=== PATIENT | male | born 1940 | race Caucasian/White ===

== ENCOUNTER 2022-10-20 18:51 | Inpatient (IN) | payer MEDICARE, SELFPAY ==
--- NOTE | ~2022-10-20 | XR_ITS ---
EXAMINATION: XR chest 2V DATE: 10/20/2022 19:30 INDICATION: Dyspnea TECHNIQUE: PA and lateral views of the chest were obtained. COMPARISON: None FINDINGS: Blunting at the bilateral posterior sulci and costophrenic angles consistent with small bilateral ple ural effusions with associated basilar atelectasis. No other airspace opacities, pulmonary edema or p neumothorax. Heart size is normal. Mild to moderate thoracic spondylosis. IMPRESSION: 1. Small bilateral pleural effusions with associated mild bibasilar atelectasis. Reviewed, dictated and finalized at location A. IMPRESSION: 1. Small bilateral pleural effusions with associated mild bibasilar atelectasis .
--- NOTE | ~2022-10-20 | NM_ITS ---
EXAMINATION: NM anup stress w perfusion DATE: 10/23/2022 09:40 INDICATION: Abnormal electrocardiogram. Elevated troponin. TECHNIQUE: Rest images were obtained following intravenous administration of 11.0 mCi Tc99m tetrofosm in (Myoview). The patient was infused intravenously with Lexiscan (regadenoson). Then, 34.6 mCi Tc99m tetrofosmin (Myoview) was administered intravenously, and stress images were obtained. Data was genet nstructed into short axis and horizontal and vertical long axis SPECT images. Gated SPECT images were also obtained. COMPARISON: CT abdomen and pelvis 08/26/2016 FINDINGS: Increased activity below the diaphragm decreases sensitivity and specificity in the inferio r wall. There is a large, severe, partially reversible perfusion defect involving left ventricular ap ex, inferior wall, apical septal segment, mid inferoseptal segment, and basal inferolateral segment, consistent with mixed infarct and ischemia. There is global hypokinesis. Left ventricular ejection fraction measures 39%. IMPRESSION: 1. 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 2. Global hypokinesis with left ventricular ejection fraction measuring 39%. Reviewed, dictated and finalized at location A. IMPRESSION: 1. Large area of severe mixed infarct and ischemia involving left ventricular a pex, inferior wall, apical septal segment, mid inferoseptal segment, and basal inferolateral segment. 2. Global hypokinesis with left ventricular ejection fraction measuring 39%.
[2022-10-20 18:52] VITALS: BP 111/66; PULSE 96; RESP 16; TEMP 36.7; O2SAT 100
--- NOTE | 2022-10-20 18:55 | ECG_ITS ---
Measurements Intervals [place] Rate: 95 P: 39 IA: 190 QRS: -11 QRSD: 106 T: 25 QT: 362 QTc: 456 Interpretive Statements SINUS RHYTHM VENTRICULAR PREMATURE COMPLEX INFERIOR INFARCT, AGE INDETERMINATE BORDERLINE ST-T WAVE ABNORMALITY- ANTEROLAT/HIGH LAT LEADS BASELINE ARTIFACT- I, II, AVR ABNORMAL ECG NO PREVIOUS ECG AVAILABLE FOR COMPARISON Electronically Signed On 10-20-2022 20:30:40 CDT by Srinivas Lott D.O.
[2022-10-20 19:18] LABS: Basophils Absolute Auto 0.1 K/mm3 (0.0-0.1); Basophils Percent Auto 1.6 % (0.2-1.2); Eosinophils Percent Auto 0.6 % (0-4.4); Hematocrit 28.9 % (42.0-52.0); Hemoglobin 8.3 g/dL (14.0-18.0); Immature Granulocyte Absolute 0.02 K/mm3 (0.00-0.031); Immature Granulocyte Percent A 0.3 % (0-0.5); Lymphocytes Absolute Auto 1.22 K/mm3 (0.9-3.2); Lymphocytes Percent Auto 17.5 % (18.3-44.2); Mean Corpuscular HGB Conc 28.7 g/dl (32-36); Mean Corpuscular Hemoglobin 21.5 pg (26-34); Mean Corpuscular Volume 74.9 fl (80-100); Mean Platelet Volume 10.5 fl (7.4-10.4); Monocytes Absolute Auto 0.7 K/mm3 (0.1-0.6); Monocytes Percent Auto 9.3 % (2.6-8.5); Neutrophils Percent Auto 70.7 % (45.5-73.1); Platelet Count Result 309 k/mm3 (150-375); Red Blood Count 3.86 M/mm3 (4.6-6.20); Red Cell Distribution Width 18.4 % (11.5-14.5)
[2022-10-20 19:31] LABS: Alanine Aminotransferase 26 U/L (6-50); Albumin Level 4.5 g/dL (3.5-5.1); Alkaline Phosphatase 42 U/L (38-126); Anion Gap 10 mmol/L (8-16); Aspartate Amino Transferase 50 U/L (17-59); Blood Urea Nitrogen 25 mg/dL (9-20); Calcium 9.9 mg/dL (8.4-10.2); Carbon Dioxide 27 mmol/L (22-30); Chloride 104 mmol/L (98-107); Estimated CRCL calculation 50 ml/min; Estimated Glomerular Filt Rate > 60; Glucose 124 mg/dL (65-110); Potassium 3.6 mmol/L (3.4-5.0); Sodium 141 mmol/L (137-145)
[2022-10-20 19:33] LABS: INR 1.1
[2022-10-20 19:34] LABS: Partial Thromboplastin Time 34.6 SECONDS (22.3-36.8)
[2022-10-20 19:49] LABS: Platelet Estimate Adequate (Adequate)
[2022-10-20 19:50] LABS: Anisocytosis 3+ (NORMAL); Hypochromasia 1+ (NORMAL)
[2022-10-20 19:51] LABS: NT Pro B Type Natriuretic Pept 8110 pg/mL (19.9-100); Troponin I 0.218 ng/mL (0.000-0.034)
[2022-10-20 20:14] LABS: Schistocytes None Seen (NORMAL)
[2022-10-20 20:28] VITALS: BP 110/69; PULSE 96; RESP 23; O2SAT 99
[2022-10-20] MEDS: FUROSEMIDE INJ 40 MG/4 ML VIAL IV PUSH (20:32)
[2022-10-20 20:41] VITALS: O2SAT 94
--- NOTE | 2022-10-20 20:46 | ED.SOB ---
HPI - SOB/Dyspnea General Chief Complaint: Shortness of Breath/Dyspnea Stated Complaint: dyspnea/ extremity swelling Time Seen by Provider: 10/20/22 20:00 History of Present Illness HPI Narrative: Patient is an 82-year-old male who presents ER with shortness of breath. Reports over the last week he has developed lower extremity swelling as well as orthopnea. No productive cough. No chest pain or chest pressure. He does have shortness of breath with exertion. No history of heart failure or [place] but he has seen a heart doctor in the past for an irregular rhythm. Related Data Allergies Allergy/AdvReac Type Severity Reaction Status Date / Time sulfamethoxazole Allergy Severe HIVES/ITCHI Verified 10/20/22 20:30 NG/FLUSHING trimethoprim Allergy Severe HIVES/ITCHI Verified 10/20/22 20:30 NG/FLUSHING Review of Systems Review of Systems: All systems reviewed & are unremarkable except as noted in HPI and below Constitutional: Constitutional: Denies chills, Reports fatigue and Denies fever(s) ENT: Denies nasal congestion and Denies sore throat Cardiovascular: Cardiovascular: Denies chest pain, Denies rapid heart rate and Denies radiating jaw, neck or arm pain Respiratory: Respiratory: Denies cough, Reports dyspnea and Denies wheezing Comments: Positive orthopnea Gastrointestinal: Gastrointestinal: Denies abdominal pain, Denies nausea and Denies vomiting PMFSH Past Medical History Medical History (Updated 10/20/22 @ 21:33 by Armen Damon MD) Gout Hyperlipidemia Hypertension Surgical History Surgical History (Updated 10/20/22 @ 21:31 by Armen Damon MD) Hx of total knee arthroplasty Bilateral Exam Narrative: GENERAL: Well-appearing, well-nourished, and in no acute distress. HEAD: Normocephalic, atraumatic. ENT: Mucous membranes moist. NECK: Supple. CHEST: Clear to auscultation. No respiratory distress. HEART: Regular rate and rhythm. High-pitched murmur at the left lower sternal border and over the apex. Normal peripheral pulses. ABDOMEN: Soft, nontender, nondistended. EXTREMITIES: Normal range of motion. +2 edema. SKIN: Warm, dry, no rash. NEURO: Alert and oriented x3. PSYCH: Normal mood and affect. Course Course Emergency Course: Patient will be admitted to the hospital service. He will be diuresed. Lovenox given for elevated troponin. Troponins will be trended. Patient aware of diagnosis and treatment plan as well as exam and lab/imaging findings. Vital Signs Vital signs: Vital Signs Temperature 98.1 F 10/20/22 18:52 Pulse Rate 96 10/20/22 18:52 Respiratory Rate 16 10/20/22 18:52 Blood Pressure 111/66 10/20/22 18:52 Pulse Oximetry 100 10/20/22 18:52 Temperature 98.1 F 10/20/22 18:52 Pulse Rate 96 10/20/22 20:28 Respiratory Rate 23 H 10/20/22 20:28 Blood Pressure 110/69 10/20/22 20:28 Pulse Oximetry 94 10/20/22 20:41 Oxygen Delivery Room Air 10/20/22 20:41 MDM - SOB/Dyspnea Lab Data 10/20/22 19:04 10/20/22 19:04 Labs: Lab Results 10/20/22 Range/Units 19:04 WBC 7.0 (4.5-10.0) K/mm3 RBC 3.86 L (4.6-6.20) M/mm3 Hgb 8.3 L (14.0-18.0) g/dL Hct 28.9 L (42.0-52.0) % MCV 74.9 L (80-100) fl MCH 21.5 L (26-34) pg MCHC 28.7 L (32-36) g/dl RDW 18.4 H (11.5-14.5) % Plt Count 309 (150-375) k/mm3 MPV 10.5 H (7.4-10.4) fl Immature Gran % (Auto) 0.3 (0-0.5) % Neut % (Auto) 70.7 (45.5-73.1) % Lymph % (Auto) 17.5 L (18.3-44.2) % Oliver % (Auto) 9.3 H (2.6-8.5) % Eos % (Auto) 0.6 (0-4.4) % Baso % (Auto) 1.6 H (0.2-1.2) % Lymph # (Auto) 1.22 (0.9-3.2) K/mm3 Oliver # (Auto) 0.7 H (0.1-0.6) K/mm3 Eos # (Auto) 0.0 (0-0.3) K/mm3 Baso # (Auto) 0.1 (0.0-0.1) K/mm3 Abs Immat Gran (auto) 0.02 (0.00-0.031) K/mm3 Absolute Neuts (auto) 5.0 (1.3-6.7) K/mm3 Absolute Nucleated RBC 0.0 (0.0-0.012) K/mm3 Nucleated RBC % 0.0 (0.0-0.2) % Pl
[2022-10-20] MEDS: ENOXAPARIN 100 MG/ML SYRINGE 89 MG SUB-Q (21:35)
[2022-10-20 21:45] VITALS: BP 121/76; PULSE 89; RESP 20; O2SAT 95
[2022-10-20 22:05] VITALS: BP 123/79; PULSE 104; RESP 20; TEMP 36.3; O2SAT 99; BMI 27.1
--- NOTE | 2022-10-20 22:11 | ADMGEN ---
This patient, Carlos Aparicio, was admitted to IMU Room 200-01 at 2205. Patient/family oriented to hospital policies and general routines including ID bracelet, bed and alarms, visiting hours, pain management, procedures, bathroom and other care routines, personal items, smoking policy, room service/diet, and visiting hours. Information on how to activate the Rapid Response Team has been discussed. Patient/Family are encouraged to report perceived risks to care and to ask questions if they do not understand what they are told or what they should do.
[2022-10-20 22:33] VITALS: BMI 26.7
[2022-10-21] VITALS (15 sets, daily range): BP systolic 94–122; BP diastolic 62–75; PULSE 77–95; RESP 16–18; TEMP 36.3–36.9; O2SAT 92–100
[2022-10-21 00:54] LABS: Troponin I 0.251 ng/mL (0.000-0.034)
--- NOTE | 2022-10-21 04:36 | PC.NURSE ---
Order not to call with results of [address] Murguia.
--- NOTE | 2022-10-21 06:00 | ECHO_ITS ---
Patient Info Name: Carlos Aparicio Age: 82 years : 1940 Gender: Male Ht: 72 in Wt: 197 lbs BSA: 2.14 m2 HR: 83 bpm BP: 121 / 54 mmHg Heart Rhythm: Sinus Rhythm Technical Quality: Fair Exam Date: 10/21/2022 7:45 AM Exam Location: [facility] Patient Status: Outpatient Admit Date: 10/20/2022 Staff Ordering Physician: Armen Damon MD Target Trimmer: Deedee Reyes RDCS Attending Provider: Candida Murguia DO Referring Physician: Nelson SIMS; Exam Type: CA echo doppler color flow Study Info Indications - chf Complete two-dimensional, color flow and Doppler transthoracic echocardiogram is performed. Summary 1. Complete two-dimensional, color flow and Doppler transthoracic echocardiogram is performed. 2. Left ventricular chamber dimension is moderately enlarged. 3. Left ventricular systolic function is low normal, estimated at 50-55%. 4. There is mildly increased left ventricular wall thickness. 5. The left ventricular diastolic function is grade II diastolic dysfunction. 6. The anterior wall, apical inferior wall, apical cap, and mid inferior wall are hypokinetic. 7. Left atrial chamber dimension is moderately enlarged. 8. There is moderate to severe aortic valve stenosis with a peak velocity of 229 cm/s, mean gradient of 12 mmHg, and aortic valve area of 1.0 cm2. 9. There is moderate mitral valve regurgitation. 10. The mitral valve has thickened leaflets. 11. There is mild tricuspid valve regurgitation. Left Ventricle Left ventricular chamber dimension is moderately enlarged. Left ventricular systolic function is low normal, estimated at 50-55%. There is mildly increased left ventricular wall thickness. The left ventricular diastolic function is grade II diastolic dysfunction. The basal inferior wall, basal inferolateral wall, and mid inferolateral wall are akinetic. The anterior wall, apical inferior wall, apical cap, and mid inferior wall are hypokinetic. All other buckley appear normal. Right Ventricle Right ventricular chamber dimension is normal. Right ventricular systolic function is normal. Left Atria Left atrial chamber dimension is moderately enlarged. Right Atria Right atrial chamber dimension is normal. Atrial Septum Intact interatrial septum visualized by color flow imaging. Aortic Valve The aortic valve is probable trileaflet. There is moderate to severe aortic valve stenosis with a peak velocity of 229 cm/s, mean gradient of 12 mmHg, and aortic valve area of 1.0 cm2. There is trace aortic valve regurgitation. Pulmonic Valve The pulmonic valve is normal. There is no pulmonic valve stenosis. There is trace pulmonic regurgitation. Mitral Valve The mitral valve has thickened leaflets. There is no mitral valve stenosis. There is moderate mitral valve regurgitation. Tricuspid Valve The tricuspid valve leaflets are normal. There is no significant tricuspid valve stenosis. There is mild tricuspid valve regurgitation. No pulmonary hypertension, estimated pulmonary arterial systolic pressure is 24 mmHg. Pericardium/Pleural The pericardium appears normal. There is no pericardial effusion. Inferior Vena Cava Normal inferior vena cava with >50% collapse upon inspiration consistent with elevated right atrial pressure, 10 mmHg. Aorta The aortic root size at the sinus of Valsalva is normal. The prox ascending aorta size is normal. Left Ventricular Outflow Tract Name Value Normal ---------
[2022-10-21] MEDS: FUROSEMIDE INJ 40 MG/4 ML VIAL IV PUSH ×2 (08:18→19:52)
[2022-10-21 10:00] LABS: Hematocrit 28.2 % (42.0-52.0); Hemoglobin 7.8 g/dL (14.0-18.0); Mean Corpuscular HGB Conc 27.7 g/dl (32-36); Mean Corpuscular Hemoglobin 21.1 pg (26-34); Mean Corpuscular Volume 76.4 fl (80-100); Mean Platelet Volume 11.1 fl (7.4-10.4); Platelet Count Result 303 k/mm3 (150-375); Red Blood Count 3.69 M/mm3 (4.6-6.20); Red Cell Distribution Width 18.3 % (11.5-14.5); White Blood Count 7.1 K/mm3 (4.5-10.0)
[2022-10-21 10:09] LABS: Anion Gap 11 mmol/L (8-16); Blood Urea Nitrogen 25 mg/dL (9-20); Calcium 9.4 mg/dL (8.4-10.2); Carbon Dioxide 27 mmol/L (22-30); Chloride 102 mmol/L (98-107); Estimated CRCL calculation 51 ml/min; Estimated Glomerular Filt Rate > 60; Glucose 92 mg/dL (65-110); Magnesium 2.1 mg/dL (1.6-2.3); Potassium 3.4 mmol/L (3.4-5.0); Sodium 140 mmol/L (137-145)
[2022-10-21] MEDS: ATORVASTATIN 20 MG TABLET PO (11:23)
[2022-10-21] MEDS: HYDROcodone/acetaminophen (*CRX) 5-325 MG TABLET 1 TAB PO ×2 (11:27→19:52)
--- NOTE | 2022-10-21 13:00 | PC.NURSE ---
Vtach noted on ekg, 10 beats at 1116 at 5 beats at 1216. Orders obtained for stat mag and bmp, ekg obtained for rhythm changes. Dr. Hubbard notified of all values. Cardiology consulted, and will see patient as well. Patient stated she felt short of breath, and was placed on 2 L nasal cannula. Will continue to monitor closely.
--- NOTE | 2022-10-21 13:21 | PM.CNCAR ---
Assessment and Plan Assessment and plan (1) Congestive heart failure: Code(s): I50.9 - Heart failure, unspecified Status: Acute Assessment and Plan: Continue with intermittent IV Lasix. Please monitor strict I/Os. Echo pending. Will also check TSH level. (2) Elevated troponin: Code(s): R77.8 - Other specified abnormalities of plasma proteins Status: Acute Assessment and Plan: Troponin 0.218 --> 0.251 --> 0.290. EKG without ischemic changes. No chest pain. Likely due to acute heart failure. Echo pending. History of Present Illness History of Present Illness Consult date/time: 10/21/22 13:21 Requesting physician: Armen Damon MD Consult reason: congestive heart failure Reason For Visit: CHF Exacerbation, elevated troponin, heart murmer Narrative: We are consulted for heart failure. This is an 82-year-old male with a history of hypertension and hyperlipidemia who presented with shortness of breath. Began last . Was concerned it may have been COVID, so he went to an urgent care on Thursday, and got tested for COVID, which came back negative. Shortness of breath occurs with minimal exertion. No chest pain. Also has bilateral lower extremity edema. No prior cardiac history. Reports he had skipping of his heart beat in the past and had a stress test several years ago that was normal. Former smoker - quit in 1970. Used to smoke 1PPD for 14 years. Remote history of alcohol drinking. ER evaluation showed troponin 0.218 --> 0.251 --> 0.290. BNP elevated at 8,110. CXR with small bilateral pleural effusions. EKG with sinus rhythm, probable old inferior infarct, PVC. We do not have a prior EKG for comparison. Patient started on IV Lasix and states he feels better since diuresis. Review of Systems Review of Systems: All systems reviewed & are unremarkable except as noted in HPI and below (HPI) [facility] Past Medical History Medical History Gout Hyperlipidemia Hypertension Surgical History Surgical History Hx of total knee arthroplasty Bilateral Family History Family History Daughter Congestive heart failure Social History Social History Smoking packs per day: 1 Smoking cigarettes per day: 20.0 Years smoked: 12 Smoking pack-years: 12.00 Smoking status: Former smoker Tobacco type: cigarettes Smokeless tobacco user: chewing tobacco Second hand tobacco smoke exposure: No Smoking end date: 06/08/70 Alcohol intake: former Substance use: never Lack of Transportation: No Lack of Food: Never True Current Housing: I Have Housing Concerned About Future Housing: No Difficulty Paying Gas/Electric Bills: No Difficulty Paying for Meds: No Currently Unemployed: No Education: High School Diploma/GED Difficulty w/ Childcare or Family Care: No Spiritual care concerns: No Meds Home Medications and Allergies Home Medications Medication Instructions Recorded Confirmed Type allopurinol 100 mg tablet 100 mg PO BID 10/20/22 10/20/22 History atorvastatin 20 mg tablet 20 mg PO DAILY 10/20/22 10/20/22 History calcium carbonate 500 2 tablet PO PRN PRN Indigestion 10/20/22 10/20/22 History mg-simethicone 20 mg chewable tablet levothyroxine 150 mcg tablet 150 mcg PO DAILY 10/20/22 10/20/22 History Allergies Allergy/AdvReac Type Severity Reaction Status Date / Time sulfamethoxazole Allergy Severe HIVES/ITCHI Verified 10/20/22 20:30 NG/FLUSHING trimethoprim Allergy Severe HIVES/ITCHI Verified 10/20/22 20:30 NG/FLUSHING Vital Signs Vital Signs - 24 hr 10/20/22 18:52 10/20/22 20:28 10/20/22 20:41 Temperature 36.7 C Pulse Rate 96 96 Respiratory Rate 16 23 H Blood Pressure 111/66 110/69 Pulse Oximetry 100 99 9
[2022-10-21] MEDS: NEOMYCIN/POLYMYXIN/BACITRACIN OINTMENT 15 GM TUBE 1 APPLIC TOPICAL (14:00)
--- NOTE | 2022-10-21 16:04 | PM.IMHP ---
H&P: HPI History of Present Illness Date/Time: 10/21/22 16:04 Chief Complaint: Shortness of breath Narrative: ED-HPI Narrative: Patient is an 82-year-old male who presents ER with shortness of breath.? Reports over the last week he has developed lower extremity swelling as well as orthopnea.? No productive cough.? No chest pain or chest pressure.? He does have shortness of breath with exertion.? No history of heart failure or [place] but he has seen a heart doctor in the past for an irregular rhythm. 82-year-old male presented with shortness of breathe lower extremity edema suspect patient may have congestive heart failure patient is being diuresed, etiology is uncertain patient states since start of Lasix his symptoms have improved is able to lie down and able to breathe, patient denies any chest pain shortness of breath or dizziness. Patient admitted as observation status Review of Systems Review of Systems: All systems reviewed & are unremarkable except as noted in HPI and below (HPI) Cardiovascular: Cardiovascular: Denies chest pain Respiratory: Respiratory: Denies cough and Denies dyspnea on exertion Hematologic/Lymphatic: Hematologic/Lymphatic: Denies easy bleeding PMFSH Past Medical History Medical History (Updated 10/22/22 @ 09:39 by Ant Shabazz MD) Aortic stenosis Gout Hyperlipidemia Hypertension Surgical History Surgical History Hx of total knee arthroplasty Bilateral Family History Family History Daughter Congestive heart failure Social History Social History Smoking packs per day: 1 Smoking cigarettes per day: 20.0 Years smoked: 12 Smoking pack-years: 12.00 Smoking status: Former smoker Tobacco type: cigarettes Smokeless tobacco user: chewing tobacco Second hand tobacco smoke exposure: No Smoking end date: 06/08/70 Alcohol intake: former Substance use: never Lack of Transportation: No Lack of Food: Never True Current Housing: I Have Housing Concerned About Future Housing: No Difficulty Paying Gas/Electric Bills: No Difficulty Paying for Meds: No Currently Unemployed: No Education: High School Diploma/GED Difficulty w/ Childcare or Family Care: No Spiritual care concerns: No Meds Home Medications and Allergies Home Medications Medication Instructions Recorded Confirmed Type allopurinol 100 mg tablet 100 mg PO BID 10/20/22 10/20/22 History atorvastatin 20 mg tablet 20 mg PO DAILY 10/20/22 10/20/22 History calcium carbonate 500 2 tablet PO PRN PRN Indigestion 10/20/22 10/20/22 History mg-simethicone 20 mg chewable tablet levothyroxine 150 mcg tablet 150 mcg PO DAILY 10/20/22 10/20/22 History Allergies Allergy/AdvReac Type Severity Reaction Status Date / Time sulfamethoxazole Allergy Severe HIVES/ITCHI Verified 10/20/22 20:30 NG/FLUSHING trimethoprim Allergy Severe HIVES/ITCHI Verified 10/20/22 20:30 NG/FLUSHING Vital Signs Vital Signs - 24 hr 10/20/22 18:52 10/20/22 20:28 10/20/22 20:41 Temperature 98.1 F Pulse Rate 96 96 Respiratory Rate 16 23 H Blood Pressure 111/66 110/69 Pulse Oximetry 100 99 94 Oxygen Delivery Room Air 10/20/22 21:45 10/20/22 22:05 10/21/22 00:00 Temperature 97.3 F L Pulse Rate 89 104 H 95 Respiratory Rate 20 20 Blood Pressure 121/76 123/79 Pulse Oximetry 95 99 Oxygen Delivery 10/21/22 04:00 10/21/22 00:00 10/21/22 04:00 Temperature 97.3 F L Pulse Rate 82 Respiratory Rate 18 Blood Pressure 98/72 L Pulse Oximetry 94 Oxygen Delivery Room Air Room Air 10/21/22 00:00 10/21/22 02:00 10/21/22 04:00 Temperature Pulse Rate 87 87 80 Respiratory Rate Blood Pressure Pulse Oximetry Oxygen Delivery 10/21/22 06:00 10/21/22 08:00 10/21/22 08:00 Temperature 97.3 F L Pu
[2022-10-21] MEDS: allopurinoL 100 MG TABLET PO (18:18)
[2022-10-21 19:25] LABS: Free T4 Free Thyroxine 0.61 ng/mL (0.78-2.19)
[2022-10-22] VITALS (14 sets, daily range): BP systolic 102–138; BP diastolic 56–67; PULSE 66–107; RESP 16–20; TEMP 36.1–36.5; O2SAT 95–100
[2022-10-22] MEDS: LEVOTHYROXINE SODIUM 150 MCG TABLET PO (05:30)
[2022-10-22] MEDS: NEOMYCIN/POLYMYXIN/BACITRACIN OINTMENT 15 GM TUBE 1 APPLIC TOPICAL (08:38)
[2022-10-22] MEDS: FUROSEMIDE INJ 40 MG/4 ML VIAL IV PUSH (08:38)
[2022-10-22] MEDS: ATORVASTATIN 20 MG TABLET PO (08:38)
[2022-10-22] MEDS: allopurinoL 100 MG TABLET PO ×2 (09:24→17:25)
--- NOTE | 2022-10-22 09:37 | PM.PNCARD ---
Progress Note: A&P Assessment and Plan (1) Congestive heart failure: Code(s): I50.9 - Heart failure, unspecified Status: Acute Assessment and Plan: Will reduce IV furosemide to 40 mg daily. Would like to add a beta-abhinav but BP is soft. BMP in the morning (2) Elevated troponin: Code(s): R77.8 - Other specified abnormalities of plasma proteins Status: Acute Assessment and Plan: Troponin 0.218 --> 0.251 --> 0.290. Multiple wall motion abnormalities noted. Will keep NPO after midnight for Lexiscan perfusion study tomorrow. Would also like to add low-dose aspirin but he is significantly anemic. (3) Aortic stenosis: Code(s): I35.0 - Nonrheumatic aortic (valve) stenosis Status: Acute Assessment and Plan: Moderate to severe Subjective Date/time seen: 10/22/22 09:37 Interval history: ?82-year-old male with a history of hypertension and hyperlipidemia who presented with shortness of breath. Date of service 10/22/2022: He feels much better today. No chest pain or shortness of breath. Wants to go home. Swelling is also better. Review of Systems Review of Systems: All systems reviewed & are unremarkable except as noted in HPI and below (HPI) Cardiovascular: Cardiovascular: Denies chest pain Respiratory: Respiratory: Denies cough and Denies dyspnea on exertion Hematologic/Lymphatic: Hematologic/Lymphatic: Denies easy bleeding Exam Const: General: comfortable and no acute distress HENMT: Mouth: Yes moist mucous membranes Eyes: General: appearance normal, both eyes and all related structures Sclera: sclerae normal Neck: Neck: supple Resp: Effort & Inspection: normal respiratory effort Auscultation: diminished lung sounds Cardio: Rate: regular rate Rhythm: regular rhythm Other: 1+ bilateral lower extremity edema Skin: General skin exam: normal color Neuro: Speech: normal speech Extrem: General: normal to inspection Psych: Mental Status: mental status grossly normal Affect: normal affect Objective Data Vital Signs Vital Signs: Vital Signs - 24 hr 10/21/22 10:00 10/21/22 11:33 10/21/22 12:00 Temperature 36.3 C L Pulse Rate 87 87 91 Respiratory Rate 16 Blood Pressure 99/65 L Pulse Oximetry 100 Oxygen Delivery 10/21/22 12:00 10/21/22 16:00 10/21/22 16:00 Temperature 36.9 C Pulse Rate 80 Respiratory Rate 16 Blood Pressure 102/72 Pulse Oximetry 97 Oxygen Delivery Room Air Room Air 10/21/22 14:00 10/21/22 16:00 10/21/22 18:00 Temperature Pulse Rate 82 77 84 Respiratory Rate Blood Pressure Pulse Oximetry Oxygen Delivery 10/21/22 20:00 10/21/22 20:00 10/21/22 23:53 Temperature 36.6 C 36.4 C Pulse Rate 82 78 Respiratory Rate 16 16 Blood Pressure 104/75 122/68 Pulse Oximetry 95 92 Oxygen Delivery Room Air 10/21/22 20:00 10/21/22 22:00 10/22/22 00:00 Temperature Pulse Rate 81 80 84 Respiratory Rate Blood Pressure Pulse Oximetry Oxygen Delivery 10/22/22 00:00 10/22/22 01:57 10/22/22 04:00 Temperature Pulse Rate 81 72 Respiratory Rate Blood Pressure Pulse Oximetry Oxygen Delivery Room Air 10/22/22 04:00 10/22/22 04:00 10/21/22 21:41 Temperature 36.3 C L Pulse Rate 73 Respiratory Rate 16 Blood Pressure 138/56 L Pulse Oximetry 100 100 Oxygen Delivery Room Air Room Air 10/22/22 05:56 10/22/22 08:00 10/22/22 08:49 Temperature 36.1 C L Pulse Rate 66 84 Respiratory Rate 20 Blood Pressure 115/67 Pulse Oximetry 95 95 Oxygen Delivery Room Air Intake/Output Intake/Output: Intake & Output 10/19/22 10/20/22 10/21/22 10/22/22 23:59 23:59 23:59 23:59 Intake Total 2560 550 Output Total 5675 750 Balance -3115 -200 Meds/Results Medications: Active Medications Generic Name Dose Route Start Last Admin Trade Name Freq PRN Reason Stop Dose Admin Acetaminophen 650 mg
--- NOTE | 2022-10-22 12:23 | PCCCNOTE ---
On 10/22/22, the student, [May Yin], provided care and completed [employer] documentation on this patient. I have reviewed the student's documentation and agree with the findings.
[2022-10-22] MEDS: GABAPENTIN 100 MG CAPSULE PO ×2 (14:23→17:25)
--- NOTE | 2022-10-22 16:51 | WPDPN ---
Progress Note: A&P Assessment and Plan (1) Congestive heart failure: Code(s): I50.9 - Heart failure, unspecified Status: Acute Assessment and Plan: ED-[facility] Narrative: Patient is an 82-year-old male who presents ER with shortness of breath.? Reports over the last week he has developed lower extremity swelling as well as orthopnea.? No productive cough.? No chest pain or chest pressure.? He does have shortness of breath with exertion.? No history of heart failure or ME but he has seen a heart doctor in the past for an irregular rhythm. 82-year-old male presented with shortness of breathe lower extremity edema suspect patient may have congestive heart failure patient is being diuresed, etiology is uncertain patient states since start of Lasix his symptoms have improved is able to lie down and able to breathe, patient denies any chest pain shortness of breath or dizziness. To further evaluate patient will have cardiac echo and patient is seen by Cardiology and further recommendation to follow. 10/22/2022 interval history: 82-year-old male presented with shortness of breathe lower extremity edema suspect patient may have congestive heart failure patient is being diuresed, etiology is uncertain patient states since start of Lasix his symptoms have improved is able to lie down and able to breathe, patient denies any chest pain shortness of breath or dizziness. To further evaluate patient had cardiac echo it showed ?1. Complete two-dimensional, color flow and Doppler transthoracic echocardiogram is performed. ? 2. Left ventricular chamber dimension is moderately enlarged. ? 3. Left ventricular systolic function is low normal, estimated at 50-55%. ? 4. There is mildly increased left ventricular wall thickness. ? 5. The left ventricular diastolic function is grade II diastolic dysfunction. ? 6. The anterior wall, apical inferior wall, apical cap, and mid inferior wall are hypokinetic. ? 7. Left atrial chamber dimension is moderately enlarged. ? 8. There is moderate to severe aortic valve stenosis with a peak velocity of 229 cm/s, mean gradient of 12 mmHg, and aortic valve area of 1.0 cm2. ? 9. There is moderate mitral valve regurgitation. ? 10. The mitral valve has thickened leaflets. ? 11. There is mild tricuspid valve regurgitation. Patient seen by Cardiology recommended Lexiscan to further evaluate and further recommendation to follow. (2) Elevated troponin: Code(s): R77.8 - Other specified abnormalities of plasma proteins Status: Acute Assessment and Plan: Patient with elevated tropes seen by Cardiology and further recommendation to follow (3) Heart murmur: Code(s): R01.1 - Cardiac murmur, unspecified Status: Acute Assessment and Plan: Patient with a history of cardiac murmur will follow-up and cardiac echo and further recommendation to follow (4) Aortic stenosis: Code(s): I35.0 - Nonrheumatic aortic (valve) stenosis Status: Acute Assessment and Plan: Patient with history of aortic stenosis will follow-up with cardiac echo patient is seen by web page developer and further recommendation to follow. Subjective Date/time seen: 10/22/22 16:51 Interval history: ED-HPI Narrative: Patient is an 82-year-old male who presents ER with shortness of breath.? Reports over the last week he has developed lower extremity swelling as well as orthopnea.? No productive cough.? No chest pain or chest pressure.? He does have shortness of breath with exertion.? No history of heart failure or ME but he has seen a heart doctor in the past for an irregular rhythm. 10/22/2022 interval history: 82-year-old male presented with shortness of breathe lower extremity edema suspect patient may have congestive heart failure patient is being diuresed, etiology is uncertain patient states since start of Lasix his symptoms have improved is able to lie down and able to breathe, patient denies any chest pain shortness of br
[2022-10-22] MEDS: ENOXAPARIN 40 MG/0.4 ML SYRINGE SUB-Q (17:25)
[2022-10-22] MEDS: HYDROcodone/acetaminophen (*CRX) 5-325 MG TABLET 1 TAB PO (23:12)
[2022-10-23] VITALS (13 sets, daily range): BP systolic 92–128; BP diastolic 62–76; PULSE 72–95; RESP 18–22; TEMP 36–36.6; O2SAT 93–99
[2022-10-23 04:59] LABS: Mean Corpuscular HGB Conc 28.6 g/dl (32-36); Mean Corpuscular Hemoglobin 20.8 pg (26-34); Mean Corpuscular Volume 72.7 fl (80-100); Mean Platelet Volume 10.8 fl (7.4-10.4); Platelet Count Result 281 k/mm3 (150-375); Red Blood Count 3.85 M/mm3 (4.6-6.20); White Blood Count 6.4 K/mm3 (4.5-10.0)
[2022-10-23 05:18] LABS: Anion Gap 7 mmol/L (8-16); Blood Urea Nitrogen 25 mg/dL (9-20); Calcium 8.3 mg/dL (8.4-10.2); Carbon Dioxide 29 mmol/L (22-30); Chloride 101 mmol/L (98-107); Estimated CRCL calculation 62 ml/min; Estimated Glomerular Filt Rate > 60; Glucose 99 mg/dL (65-110); Magnesium 2.4 mg/dL (1.6-2.3); Potassium 3.6 mmol/L (3.4-5.0); Sodium 137 mmol/L (137-145)
[2022-10-23] MEDS: LEVOTHYROXINE SODIUM 150 MCG TABLET PO (06:29)
--- NOTE | 2022-10-23 08:43 | EST_ITS ---
Patient Info Name: Carlos Aparicio Age: 82 years : 1940 Gender: Male Ht: 72 in Wt: 188 lbs BSA: 2.09 m2 Exam Date: 10/23/2022 8:46 AM Exam Location: [facility] Stress Patient Status: Inpatient Admit Date: 10/21/2022 Staff Ordering Physician: Ant Shabazz MD Attending Provider: Candida Murguia DO Exercise Technologist: Ira Gan RDCS Exercise Physician: Ant Shabazz MD Exam Type: CA stress anup w NM Study Info Indications - ELEVATED TROPONIN A regadenoson stress test was performed. Summary 1. Please correlate with nuclear medicine images, reported separately. 2. No abnormal ST-T wave changes with lexiscan. 3. His stress test is personally supervised by Dr. Ant Shabazz. Protocol: Lexiscan Stress ECG Details Stage: REST Duration (min): 1 min : 27 sec HR (bpm): 83 SBP (mmHg): 115 DBP (mmHg): 83 Stage: REST Duration (min): 5 min : 8 sec HR (bpm): 83 SBP (mmHg): 115 DBP (mmHg): 83 Stage: STAGE 1 Duration (min): 0 min : 59 sec HR (bpm): 83 SBP (mmHg): 120 DBP (mmHg): 82 Stage: RECOVERY Duration (min): 1 min : 0 sec HR (bpm): 85 SBP (mmHg): 117 DBP (mmHg): 79 Stage: RECOVERY Duration (min): 2 min : 0 sec HR (bpm): 83 SBP (mmHg): 117 DBP (mmHg): 79 Stage: RECOVERY Duration (min): 3 min : 0 sec HR (bpm): 83 SBP (mmHg): 111 DBP (mmHg): 77 Stage: RECOVERY Duration (min): 3 min : 6 sec HR (bpm): 84 SBP (mmHg): 111 DBP (mmHg): 77 Rest HR: 83 bpm Peak HR: 87 bpm Rest Sys BP: 115 mmHg Peak Sys BP: 120 mmHg Max Pred HR: 139 bpm % Max Pred HR: 63 % Target HR: 118 bpm Max RPP: 10,440 bpm*mmHg BP Response: Normal blood pressure response Termination Reason: Completed protocol Cardiac Symptoms: None Total Time: 1 min : 0 sec Rest Askew BP: 83 mmHg Peak Askew BP: 82 mmHg Total Dose: 0.4 mg Resting ECG Normal sinus rhythm. Resting ST/T wave changes. pvc. Stress ECG No abnormal ST/T wave changes with exercise. Arrhythmias Frequent PVCs. Report Signatures
--- NOTE | 2022-10-23 09:23 | PM.PNCARD ---
Progress Note: A&P Assessment and Plan (1) Congestive heart failure: Code(s): I50.9 - Heart failure, unspecified Status: Acute Assessment and Plan: will DC IV furosemide. Switch him to oral furosemide 20 mg p.o. daily. His potassium is low and will replace with KCL40 mg p.o. x1 . Will add low-dose beta-abhinav metoprolol tartrate 6.25 mg p.o. b.i.d. (2) Elevated troponin: Code(s): R77.8 - Other specified abnormalities of plasma proteins Status: Acute Assessment and Plan: Troponin 0.218 --> 0.251 --> 0.290. Multiple wall motion abnormalities noted. awaiting stress test results. Would also like to add low-dose aspirin but he is significantly anemic. (3) Aortic stenosis: Code(s): I35.0 - Nonrheumatic aortic (valve) stenosis Status: Acute Assessment and Plan: Moderate to severe Subjective Date/time seen: 10/23/22 09:23 Interval history: ?82-year-old male with a history of hypertension and hyperlipidemia who presented with shortness of breath. Date of service 10/22/2022: He feels much better today. No chest pain or shortness of breath. Wants to go home. Swelling is also better. Date of service 10/23/2022: Continues to feel well. No chest pain, shortness of breath, syncope. Seen in stress lab Review of Systems Review of Systems: All systems reviewed & are unremarkable except as noted in HPI and below (HPI) Cardiovascular: Cardiovascular: Denies chest pain and Denies dyspnea on exertion Respiratory: Respiratory: Denies cough and Denies dyspnea on exertion Hematologic/Lymphatic: Hematologic/Lymphatic: Denies easy bleeding Exam Const: General: comfortable and no acute distress HENMT: Mouth: Yes moist mucous membranes Eyes: General: appearance normal, both eyes and all related structures Sclera: sclerae normal Neck: Neck: supple Resp: Effort & Inspection: normal respiratory effort Auscultation: diminished lung sounds Cardio: Rate: regular rate Rhythm: regular rhythm Other: no edema Skin: General skin exam: normal color Neuro: Speech: normal speech Extrem: General: normal to inspection Psych: Mental Status: mental status grossly normal Affect: normal affect Objective Data Vital Signs Vital Signs: Vital Signs - 24 hr 10/22/22 10:00 10/22/22 12:00 10/22/22 16:00 Temperature 36.2 C L 36.3 C L Pulse Rate 85 91 107 H Respiratory Rate 18 18 Blood Pressure 108/65 102/64 Pulse Oximetry 96 97 Oxygen Delivery 10/22/22 12:00 10/22/22 16:00 10/22/22 12:00 Temperature Pulse Rate 93 Respiratory Rate Blood Pressure Pulse Oximetry Oxygen Delivery Room Air Room Air 10/22/22 14:00 10/22/22 16:00 10/22/22 18:00 Temperature Pulse Rate 83 83 85 Respiratory Rate Blood Pressure Pulse Oximetry Oxygen Delivery 10/22/22 20:00 10/22/22 20:00 10/22/22 20:00 Temperature 36.1 C L Pulse Rate 87 83 87 Respiratory Rate 18 Blood Pressure 104/62 Pulse Oximetry 97 Oxygen Delivery Room Air 10/22/22 22:00 10/22/22 23:20 10/23/22 00:00 Temperature 36.5 C Pulse Rate 86 83 83 Respiratory Rate 18 Blood Pressure 111/65 Pulse Oximetry 97 Oxygen Delivery Room Air 10/23/22 00:00 10/23/22 02:00 10/23/22 04:00 Temperature Pulse Rate 83 81 72 Respiratory Rate Blood Pressure Pulse Oximetry Oxygen Delivery Room Air 10/23/22 04:00 10/23/22 04:00 10/23/22 06:00 Temperature 36.6 C Pulse Rate 72 79 75 Respiratory Rate 18 Blood Pressure 105/67 Pulse Oximetry 93 Oxygen Delivery 10/23/22 08:00 Temperature 36.6 C Pulse Rate 80 Respiratory Rate 20 Blood Pressure 92/62 L Pulse Oximetry 98 Oxygen Delivery Intake/Output Intake/Output: Intake & Output 10/20/22 10/21/22 10/22/22 10/23/22 23:59 23:59 23:59 23:59 Intake Total 2560 1930 550 Output Total 4752 9735 120 Zmyxjmt -2525 -1451 350 Meds/Results Medications: Act
--- NOTE | 2022-10-23 09:53 | P.CDI_ITS ---
CDI Query Clarification Request Elevated BNP on 10/20/22 lab work. Patient presented with shortness of breath, LE edema and orthopnea. CHF noted on the assessment and plan. Patient receiving Lasix. Please specify type and acuity of heart failure if known. * Acute * Chronic * Acute on Chronic * Unknown * Systolic * Diastolic * Combined Systolic and Diastolic * Unknown <Gertrudis Oreilly RN - Last Filed: 10/23/22 09:56> Clarified Diagnosis Clarified Diagnosis: Echo showed grade 2 diastolic dysfunction, patient has acute on chronic diastolic congestive heart failure <Eulalia Shipman MD - Last Filed: 11/05/22 18:42>
[2022-10-23] MEDS: GABAPENTIN 100 MG CAPSULE PO ×3 (10:18→16:00)
[2022-10-23] MEDS: ATORVASTATIN 20 MG TABLET PO (10:18)
[2022-10-23] MEDS: allopurinoL 100 MG TABLET PO ×2 (10:18→16:00)
[2022-10-23] MEDS: POTASSIUM CHLORIDE 20 MEQ TABLET 40 MEQ PO (10:18)
[2022-10-23] MEDS: NEOMYCIN/POLYMYXIN/BACITRACIN OINTMENT 15 GM TUBE 1 APPLIC TOPICAL (10:18)
[2022-10-23] MEDS: ENOXAPARIN 40 MG/0.4 ML SYRINGE SUB-Q (10:18)
[2022-10-23] MEDS: DOCUSATE SODIUM 100 MG CAPSULE PO (16:00)
--- NOTE | 2022-10-23 17:36 | WPDPN ---
Progress Note: A&P Assessment and Plan (1) Congestive heart failure: Code(s): I50.9 - Heart failure, unspecified Status: Acute Assessment and Plan: ED-[facility] Narrative: Patient is an 82-year-old male who presents ER with shortness of breath.? Reports over the last week he has developed lower extremity swelling as well as orthopnea.? No productive cough.? No chest pain or chest pressure.? He does have shortness of breath with exertion.? No history of heart failure or PR but he has seen a heart doctor in the past for an irregular rhythm. 82-year-old male presented with shortness of breathe lower extremity edema suspect patient may have congestive heart failure patient is being diuresed, etiology is uncertain patient states since start of Lasix his symptoms have improved is able to lie down and able to breathe, patient denies any chest pain shortness of breath or dizziness. To further evaluate patient will have cardiac echo and patient is seen by Cardiology and further recommendation to follow. 10/22/2022 interval history: 82-year-old male presented with shortness of breathe lower extremity edema suspect patient may have congestive heart failure patient is being diuresed, etiology is uncertain patient states since start of Lasix his symptoms have improved is able to lie down and able to breathe, patient denies any chest pain shortness of breath or dizziness. To further evaluate patient had cardiac echo it showed ?1. Complete two-dimensional, color flow and Doppler transthoracic echocardiogram is performed. ? 2. Left ventricular chamber dimension is moderately enlarged. ? 3. Left ventricular systolic function is low normal, estimated at 50-55%. ? 4. There is mildly increased left ventricular wall thickness. ? 5. The left ventricular diastolic function is grade II diastolic dysfunction. ? 6. The anterior wall, apical inferior wall, apical cap, and mid inferior wall are hypokinetic. ? 7. Left atrial chamber dimension is moderately enlarged. ? 8. There is moderate to severe aortic valve stenosis with a peak velocity of 229 cm/s, mean gradient of 12 mmHg, and aortic valve area of 1.0 cm2. ? 9. There is moderate mitral valve regurgitation. ? 10. The mitral valve has thickened leaflets. ? 11. There is mild tricuspid valve regurgitation. ? 11. There is mild tricuspid valve regurgitation. Today patient had Lexiscan it showed1. 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 2. Global hypokinesis with left ventricular ejection fraction measuring 39%. Patient may need cardiac catheterization to further evaluate patient will be seen cardiology and further recommendation to follow. (2) Elevated troponin: Code(s): R77.8 - Other specified abnormalities of plasma proteins Status: Acute Assessment and Plan: Patient with elevated tropes seen by Cardiology and further recommendation to follow (3) Heart murmur: Code(s): R01.1 - Cardiac murmur, unspecified Status: Acute Assessment and Plan: Patient with a history of cardiac murmur will follow-up and cardiac echo and further recommendation to follow (4) Aortic stenosis: Code(s): I35.0 - Nonrheumatic aortic (valve) stenosis Status: Acute Assessment and Plan: Patient with history of aortic stenosis will follow-up with cardiac echo patient is seen by technical manager and further recommendation to follow. Subjective Date/time seen: 10/23/22 17:36 Interval history: ED-HPI Narrative: Patient is an 82-year-old male who presents ER with shortness of breath.? Reports over the last week he has developed lower extremity swelling as well as orthopnea.? No productive cough.? No chest pain or chest pressure.? He does have shortness of breath with exertion.? No history of heart failure or PR but he has seen a heart doctor in the past for an
[2022-10-23] MEDS: METOPROLOL TARTRATE 6.25 MG TABLET PO (20:32)
[2022-10-24] VITALS (8 sets, daily range): BP systolic 106–116; BP diastolic 68–73; PULSE 75–93; RESP 16–22; TEMP 36.4–36.9; O2SAT 94–99
[2022-10-24 05:04] LABS: Hematocrit 28.2 % (42.0-52.0); Mean Corpuscular HGB Conc 28.4 g/dl (32-36); Mean Corpuscular Hemoglobin 21.1 pg (26-34); Mean Corpuscular Volume 74.4 fl (80-100); Mean Platelet Volume 10.5 fl (7.4-10.4); Platelet Count Result 268 k/mm3 (150-375); Red Blood Count 3.79 M/mm3 (4.6-6.20); Red Cell Distribution Width 18.3 % (11.5-14.5); White Blood Count 6.5 K/mm3 (4.5-10.0)
[2022-10-24 05:15] LABS: Anion Gap 6 mmol/L (8-16); Blood Urea Nitrogen 19 mg/dL (9-20); Calcium 8.5 mg/dL (8.4-10.2); Carbon Dioxide 27 mmol/L (22-30); Chloride 105 mmol/L (98-107); Estimated CRCL calculation 62 ml/min; Estimated Glomerular Filt Rate > 60; Glucose 98 mg/dL (65-110); Magnesium 2.5 mg/dL (1.6-2.3); Sodium 138 mmol/L (137-145)
--- NOTE | 2022-10-24 08:15 | PM.PNCARD ---
Progress Note: A&P Assessment and Plan (1) Congestive heart failure: Code(s): I50.9 - Heart failure, unspecified Status: Acute (2) Aortic stenosis: Code(s): I35.0 - Nonrheumatic aortic (valve) stenosis Status: Acute Plan 82-year-old man with evidence of ischemic heart disease, previous infarction of the inferior/inferolateral wall reduced ejection fraction and at least moderate aortic valve stenosis. He is doing well with diuresis and beta-abhinav and is now asymptomatic. I was informed by my partner that plan was for catheterization today for further evaluation of his cardiac status. Right and left heart catheterization was planned also because of his aortic valve disease. Discussion with the patient this morning he indicates that he does not wish to proceed with this at this time. He states that he wishes to follow-up with his PCP and consider whether he will consider invasive procedures/as an outpatient. He does not feel confident in the capability of our group at [facility] to provide his care. Obviously she does not have confidence on our our abilities I do not wish to perform procedures on him here. He can be discharged. I will not plan follow-up in our office since he see is indicating he is going to pursue care elsewhere. Martir Soler MD [facility] Subjective Date/time seen: Date of service: 10/24/22 08:15 Interval history: Follow-up visit in this 82-year-old man with: Congestive heart failure with reduced ejection fraction evidence of coronary artery disease, previous ID and at least moderate aortic valve stenosis. Patient feels comfortable today no longer experiencing any shortness of breath and offers no complaints. Exam Const: General: comfortable and no acute distress Other: Elderly gentleman no apparent distress HENMT: Mouth: Yes moist mucous membranes Eyes: Sclera: sclerae normal Neck: Neck: supple and no JVD Other: Carotid pulses intact bilaterally transmitted murmur to the neck bilaterally Resp: Effort & Inspection: normal respiratory effort Auscultation: clear to auscultation bilaterally Cardio: Rate: regular rate Rhythm: regular rhythm Other: Soft grade 2/6 crescendo decrescendo murmur audible at the base without radiation no diastolic murmur S4 is evident GI: GI Palp: Yes Soft to palpation Auscultation: normal bowel sounds Skin: General skin exam: normal color Neuro: Other: Alert and oriented x3 Extrem: Other: No edema, adequate distal perfusion Objective Data Vital Signs Vital Signs: Vital Signs - 24 hr 10/23/22 10:00 10/23/22 12:00 10/23/22 16:00 Temperature Pulse Rate 80 Respiratory Rate Blood Pressure Pulse Oximetry Oxygen Delivery Room Air Room Air 10/23/22 12:00 10/23/22 14:00 10/23/22 16:00 Temperature Pulse Rate 95 84 89 Respiratory Rate Blood Pressure Pulse Oximetry Oxygen Delivery 10/23/22 16:00 10/23/22 18:00 10/23/22 20:32 Temperature 36.0 C L Pulse Rate 85 86 84 Respiratory Rate 22 H Blood Pressure 128/74 Pulse Oximetry 97 Oxygen Delivery 10/23/22 20:00 10/24/22 00:00 10/24/22 04:00 Temperature 36.6 C 36.5 C 36.4 C Pulse Rate 92 84 88 Respiratory Rate 22 H 22 H 22 H Blood Pressure 114/76 108/69 116/73 Pulse Oximetry 99 95 94 Oxygen Delivery 10/23/22 20:00 10/23/22 20:00 10/23/22 22:00 Temperature Pulse Rate 86 81 Respiratory Rate Blood Pressure Pulse Oximetry 97 Oxygen Delivery Room Air 10/24/22 00:00 10/24/22 02:00 10/24/22 04:00 Temperature Pulse Rate 84 75 83 Respiratory Rate Blood Pressure Pulse Oximetry Oxygen Delivery 10/24/22 00:00 10/24/22 04:00 10/24/22 06:00 Temperature Pulse Rate 84 Respiratory Rate Blood Pressure Pulse Oximetry Oxygen Delivery Room Air Room Air Intake/Output Intake/Output: Intake & Output 10/21/22 10/22/2210/06
[2022-10-24] MEDS: allopurinoL 100 MG TABLET PO (10:37)
[2022-10-24] MEDS: DOCUSATE SODIUM 100 MG CAPSULE PO (10:37)
[2022-10-24] MEDS: ENOXAPARIN 40 MG/0.4 ML SYRINGE SUB-Q (10:37)
[2022-10-24] MEDS: NEOMYCIN/POLYMYXIN/BACITRACIN OINTMENT 15 GM TUBE 1 APPLIC TOPICAL (10:37)
[2022-10-24] MEDS: METOPROLOL SUCCINATE EXT REL 25 MG TABCR PO (10:37)
[2022-10-24] MEDS: GABAPENTIN 100 MG CAPSULE PO (10:38)
[2022-10-24] MEDS: ATORVASTATIN 20 MG TABLET PO (10:38)
[2022-10-24] MEDS: FUROSEMIDE 20 MG TABLET PO (10:38)
--- NOTE | 2022-10-24 13:21 | PCCCNOTE ---
On 10/24/22, the student, [May Yin], provided care and completed [facility] documentation on this patient. I have reviewed the student's documentation and agree with the findings.
--- NOTE | 2022-10-24 13:31 | PM.DS ---
DS: Admitting Diagnosis Discharge Date 10/24/2022 Admitting Diagnosis Shortness of breath DS: Discharge Diagnosis Discharge Diagnosis (1) Congestive heart failure: Code(s): I50.9 - Heart failure, unspecified Status: Acute Assessment and Plan: ED-[facility] Narrative: Patient is an 82-year-old male who presents ER with shortness of breath.? Reports over the last week he has developed lower extremity swelling as well as orthopnea.? No productive cough.? No chest pain or chest pressure.? He does have shortness of breath with exertion.? No history of heart failure or [place] but he has seen a heart doctor in the past for an irregular rhythm. 82-year-old male presented with shortness of breathe lower extremity edema suspect patient may have congestive heart failure patient is being diuresed, etiology is uncertain patient states since start of Lasix his symptoms have improved is able to lie down and able to breathe, patient denies any chest pain shortness of breath or dizziness. To further evaluate patient will have cardiac echo and patient is seen by Cardiology and further recommendation to follow. 10/22/2022 interval history: 82-year-old male presented with shortness of breathe lower extremity edema suspect patient may have congestive heart failure patient is being diuresed, etiology is uncertain patient states since start of Lasix his symptoms have improved is able to lie down and able to breathe, patient denies any chest pain shortness of breath or dizziness. To further evaluate patient had cardiac echo it showed ?1. Complete two-dimensional, color flow and Doppler transthoracic echocardiogram is performed. ? 2. Left ventricular chamber dimension is moderately enlarged. ? 3. Left ventricular systolic function is low normal, estimated at 50-55%. ? 4. There is mildly increased left ventricular wall thickness. ? 5. The left ventricular diastolic function is grade II diastolic dysfunction. ? 6. The anterior wall, apical inferior wall, apical cap, and mid inferior wall are hypokinetic. ? 7. Left atrial chamber dimension is moderately enlarged. ? 8. There is moderate to severe aortic valve stenosis with a peak velocity of 229 cm/s, mean gradient of 12 mmHg, and aortic valve area of 1.0 cm2. ? 9. There is moderate mitral valve regurgitation. ? 10. The mitral valve has thickened leaflets. ? 11. There is mild tricuspid valve regurgitation. ? 11. There is mild tricuspid valve regurgitation. Today patient had Lexiscan it showed1. 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 2. Global hypokinesis with left ventricular ejection fraction measuring 39%. Patient may need cardiac catheterization to further evaluate patient will be seen cardiology and further recommendation to follow. (2) Elevated troponin: Code(s): R77.8 - Other specified abnormalities of plasma proteins Status: Acute Assessment and Plan: Patient with elevated tropes seen by Cardiology and further recommendation to follow (3) Heart murmur: Code(s): R01.1 - Cardiac murmur, unspecified Status: Acute Assessment and Plan: Patient with a history of cardiac murmur will follow-up and cardiac echo and further recommendation to follow (4) Aortic stenosis: Code(s): I35.0 - Nonrheumatic aortic (valve) stenosis Status: Acute Assessment and Plan: Patient with history of aortic stenosis will follow-up with cardiac echo patient is seen by roofer gypsum and further recommendation to follow. DS: Summary Hospital Course Reason for hospitalization: Shortness of breath Narrative: ED-HPI Narrative: Patient is an 82-year-old male who presents ER with shortness of breath.? Reports over the last week he has developed lower extremity swelling as well as orthopnea.? No productive cough.? No chest pain or chest pressure.? He does
== END 2022-10-24 14:17 | disposition home or self-care (01) | DRG 291 ==
LOC: ANHED 21:33 → ANHIMU 21:43
PROVIDERS: Internal Medicine; Internal Medicine Cardiovascular Disease; Admitting Provider Internal Medicine; Emergency Provider Emergency Medicine; PCP Internal Medicine; Visit Provider Family Medicine
DX: I11.0 Hypertensive heart disease with heart failure (principal); I50.33 Acute on chronic diastolic (congestive) heart failure; I25.10 Atherosclerotic heart disease of native coronary artery without angina pectoris; E78.5 Hyperlipidemia, unspecified; R01.1 Cardiac murmur, unspecified; I35.0 Nonrheumatic aortic (valve) stenosis; Z87.891 Personal history of nicotine dependence; Z96.653 Presence of artificial knee joint, bilateral
CPT/HCPCS: 36415; 71046; 78452; 80048; 80053; 83735; 83880; 84439; 84443; 84484; 85025; 85027; 85610; 85730; 93005; 93017; 93306; 96372; 96374; 99285; A9270; A9502; G0378; J1650; J1940; J2785